=== PATIENT | female | born 1995 | race Caucasian/White ===

== ENCOUNTER 2020-01-29 20:38 | Emergency (ER) | payer OTHER, SELFPAY ==
[2020-01-29 20:46] VITALS: BP 121/73; PULSE 70; RESP 14; TEMP 36.7; O2SAT 100; BMI 23.9
--- NOTE | 2020-01-29 21:01 | ED.NEUROSD ---
HPI - Neuro Symptoms/Deficit General Chief Complaint: Neuro Symptoms/Deficit Stated Complaint: left side body numbeness,headache,vision changes Time Seen by Provider: 01/29/20 20:42 Source: patient Mode of arrival: Ambulatory Limitations: no limitations History of Present Illness HPI Narrative: 24F nonsmoker without chronic medical problems presents with a friend and the chief complaint of her migraine type pain. She has a history of migraine type headaches which have presented under similar circumstances as today. She first develops some visual spots, then gets some numbness on the left side of her body. Her pain is traditionally gradual in onset and on the right side of her head. She has a migraine medicine which she took at home and symptoms are now largely gone. She denies any injury, fever, or neck pain. She denies any ongoing neurologic symptoms other than a minor amount of tingling on the left side of her body. She denies chest pain or shortness of breath. She is otherwise well and free of complaint Onset (ago): hour(s) Severity: mild Quality: tingling Relieving factors: none Exacerbating factors: none On Anticoagulants: No Associated symptoms: headaches Treatments Prior to Arrival: other medication Related Data Allergies Allergy/AdvReac Type Severity Reaction Status Date / Time No Known Drug Allergies Allergy Verified 01/29/20 20:46 Review of Systems Constitutional Constitutional: Denies chills, Denies fatigue, Denies fever(s), Denies frequent falls, Reports headache(s), Denies lethargy and Denies weakness Eyes Eyes: Denies change in vision, Denies eye discharge, Reports floaters, Denies irritation and Denies loss of vision ENT Ears, Nose, Mouth, and Throat: Denies change in voice, Denies dizziness, Reports headache(s), Denies neck pain, Denies sore throat and Denies throat swelling Cardiovascular Cardiovascular: Denies chest pain, Denies irregular heart rhythm, Denies lightheadedness, Denies palpitations, Denies dyspnea, Denies dyspnea on exertion and Denies orthopnea Respiratory Respiratory: Denies cough, Denies dyspnea, Denies dyspnea on exertion and Denies wheezing Gastrointestinal Gastrointestinal: Denies abdominal pain, Denies change in bowel habits, Denies diarrhea, Denies nausea and Denies vomiting Musculoskeletal Musculoskeletal: Denies neck pain and Reports numbness Integumentary/Breasts Skin/Breast: Denies pruritus, Denies erythema, Denies rash and Denies wounds Neurologic Neurologic: Denies behavioral changes, Denies confusion, Denies dizziness, Denies frequent falls, Reports headache(s), Denies loss of vision, Reports numbness and Denies weakness Psychiatric Psychiatric: Denies anxiety, Denies behavioral changes, Denies confusion, Denies depression, Denies homicidal ideation and Denies suicidal ideation Endocrine Endocrine: Denies fatigue, Denies flushing and Denies palpitations Hematologic/Lymphatic Hematologic/Lymphatic: Denies easy bruising Allergic/Immunologic Allergic/Immunologic: Denies urticaria, Denies throat swelling and Denies wheezing Patient History Social History Smoking Status: Unknown if ever smoked Smoking Status: Unknown if ever smoked alcohol intake frequency: holidays/special occasions only Substance Use Type: does not use Exam Narrative Exam Narrative: GENERAL: [24] year old patient appears stated age. Well-nourished, well-developed patient, in mild distress. HEAD: Atraumatic. Normocephalic. EYES: Pupils equal round and reactive. Extraocular motions intact. No scleral icterus. No injection or drainage. ENT: Nose without bleeding, purulent drainage. Throat without erythema, tonsillar hypertrophy or exudate. Airway patent. NECK: Trachea midline. Non tender CARDIOVASCULAR: Regular rate and rhythm without murmurs, gallops, or rubs. RESPIRATORY: Clear to auscultation. Breath sounds equal bilaterally. No wheezes, rales, or rhonchi. GASTROINTESTINAL: Abdomen soft, non-tender, nondistended. EXTREMITIES: No edema or joint tenderness. BACK: Nontender without deformity or crepitance. No flank tenderness. NEURO: AOx3. SKIN: No rash or erythema of visible areas NIH Stroke Scale 1a. LOC: Patient is alert and keenly responsive (0) 1b. LOC Questions: Patient answers both LOC questions accurately (0) 1c. LOC Commands: Patient performs both tasks correctly (0) 2. Best Gaze: Normal (0) 3. Visual: No visual loss (0) 4. Facial palsy: Normal symmetrical movements (0) 5. Motor arm: No drift (0) 6. Motor leg: No drift (0) 7. Limb ataxia: Absent (0) 8. Sensory: Normal (0) 9. Best language: No aphasia; normal (0) 10. Dysarthria: Normal (0) 11. Extinction and inattention: No abnormality (0) NIHSS: 0 Initial Vital Signs Initial Vital Signs: Vital Signs Temperature 98.0 F 01/29/20 20:46 Pulse Rate 70 01/29/20 20:46 Respiratory Rate 14 01/29/20 20:46 Blood Pressure 121/73 01/29/20 20:46 Pulse Oximetry 100 01/29/20 20:46 Course Orders Ordered: ED Orders 01/29/20 21:14 CT head/brain wo con Stat Discontinued Medications Sodium Chloride (Normal Saline 0.9%) 1,000 mls @ 1,000 mls/hr IV BOLUS ONE Stop: 01/29/20 22:13 Last Admin: 01/29/20 21:43 Dose: Not Given Documented by: MARIETTA Vital Signs Vital signs: Vital Signs - 8 hr 01/29/20 21:49 Pulse Rate 84 Respiratory Rate 14 Blood Pressure 117/71 Pulse Oximetry 100 MDM - Neuro Symptoms/Deficit Lab Data Labs: Point of Care Testing Test Results Negative Glucose POC 129 Urine Dip Bedside Urine Glucose Negative Bedside Urine Bilirubin - Negative Bedside Urine Ketone - Negative Urine Specific [place] 1.015 Bedside Urine Occult Blood - Negative Bedside Urine pH 6 Bedside Urine Protein - Negative Bedside Urine Urobilinogen - Negative Bedside Urine Nitrite - Negative Bedside Urine Leukocytes - Negative Esterase Imaging Data CT scan - head: Radiologist's Impression: [place] [id number] CT Scan Report Signed Patient: Pau Aguilar TMR#: [id number] : 1995Acct:[id number] Age/Sex: 24 / FDate of Service: 01/29/20 Loc: ED Accession Number: [id number] Procedure: CT head/brain wo con Ordering Provider: Vladimir Christensen D.O. PROCEDURE: CT HEAD/BRAIN WO CON INDICATIONS: headache, neuro change TECHNIQUE: Noncontrast 4.5 mm thick angled axial sections acquired from the foramen magnum to the vertex, with coronal and sagittal reformats. For radiation dose reduction, the following was used: automated exposure control, adjustment of mA and/or kV according to patient size. COMPARISON: None. FINDINGS: Image quality: Excellent. CSF spaces: Basal cisterns are patent. No extra-axial fluid collections. Ventricles are normal in size and shape. Brain: No midline shift. No intracranial masses or hemorrhage. Reid-white matter interface is normal. Skull and face: Calvarium and visualized facial bones are intact, without suspicious lesions. Sinuses: Visualized sinuses and mastoids are clear. IMPRESSION: No CT evidence of acute intracranial pathology. Dictated by: Jonathon Brennan M.D. on 01/29/2020 at 21:35 Approved by: Jonathon Brnenan M.D. on 01/29/2020 at 21:36 [facility] Narrative Medical decision making narrative: Patient symptoms resolved soon after arrival. Head CT reassuring. We discussed lack of findings in history or exam to suggest neurologic or neurosurgical emergency. We discussed giving typical migraine medications but she refused stating she was no longer having discomfort. She was given return precautions and had questions answered to her apparent satisfaction. Discharge Plan Departure Patient Disposition: Home Clinical Impression: Headache Qualifiers: Headache type: unspecified Headache chronicity pattern: acute headache Intractability: not intractable Qualified Code(s): R51 - Headache Discharge Date/Time: 01/29/20 21:51 Instructions: DI for Migraine Activity Restrictions/Additional Instructions: *You have been diagnosed with [acute resolved headache, likely migraine] *What to do: *Take medications as directed *Follow up with your primary care provider in 2-3 days, call for an appointment. Let them know you were seen in the Emergency Department and that we ask that you be seen in follow up *Return to ER if you should have any new, worsening or concerning symptoms
--- NOTE | 2020-01-29 21:10 | PC.NURSE ---
Patient presents to the ED with complaints of left side eye disturbance and left sided tingling. She has no visual field loss, no focal weakness in her arms or legs, her pupils are PERRLA, she was has no horizontal gaze palsy, no sensation loss of difference in either side of her body. She does report having an increase in anxiety for the last two weeks which she is not taking anything for. 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 She took her Rizatripton for migraine today and it seemed to have little effect in alleviating her headache pain.
--- NOTE | 2020-01-29 21:14 | DI.CT.S_ITS ---
PROCEDURE: CT HEAD/BRAIN WO CON INDICATIONS: headache, neuro change TECHNIQUE: Noncontrast 4.5 mm thick angled axial sections acquired from the foramen magnum to the vertex, with coronal and sagittal reformats. For radiation dose reduction, the following was used: automated exposure control, adjustment of mA and/or kV according to patient size. COMPARISON: None. FINDINGS: Image quality: Excellent. CSF spaces: Basal cisterns are patent. No extra-axial fluid collections. Ventricles are normal in size and shape. Brain: No midline shift. No intracranial masses or hemorrhage. Reid-white matter interface is normal. Skull and face: Calvarium and visualized facial bones are intact, without suspicious lesions. Sinuses: Visualized sinuses and mastoids are clear. IMPRESSION: No CT evidence of acute intracranial pathology. Dictated by: Jonathon Brennan M.D. on 01/29/2020 at 21:35 Approved by: Jonathon Brennan M.D. on 01/29/2020 at 21:36
[2020-01-29 21:49] VITALS: BP 117/71; PULSE 84; RESP 14; O2SAT 100
== END 2020-01-29 21:51 | disposition home or self-care (01) ==
PROVIDERS: Emergency Provider Emergency Medicine
DX: R51 Headache (principal); R29.818 Other symptoms and signs involving the nervous system
CPT/HCPCS: 70450; 81003; 81025; 82962; 99283; 99284

== ENCOUNTER 2020-05-16 08:46 | Emergency (ER) | payer OTHER, SELFPAY ==
[2020-05-16 08:52] VITALS: BP 136/81; PULSE 85; O2SAT 98
--- NOTE | 2020-05-16 08:56 | ED_ITS ---
HPI - General Adult General Chief complaint: Headache Stated complaint: Chronic Headaches,Almost passes when she stands up Time Seen by Provider: 05/16/20 08:54 Source: patient Mode of arrival: Ambulatory Limitations: no limitations History of Present Illness HPI narrative: Patient is a 25-year-old female who has suffered from chronic headaches for the past several months. She is on an abortive medication prescri bed by her primary doctor. She states she gets several headaches a month. She is here for a headache that she states has been going on for the past 3 days. She has been using her prescribed medicines as well as Tylenol and ibuprofen without any improvement. She states that she also is getting lightheaded when she stands up. No fevers. No neck pain. No trauma. She did have an implanted control method placed in her arm approximately 1 month ago when she states that her headache started to get worse prior to this. She does not feel that there associated with any menstrual cycle. She has not seen a headache specialist. This is her 3rd visit to an emergency department for these headaches in the past 6 months and the 2nd visit to this department. She has had a head CT in the past that was unremarkable. She is here because she states that this headache has lasted longer than prior headaches and she is getting lightheaded when she stands up. Related Data Allergies Allergy/AdvReac Type Severity Reaction Status Date / Time No Known Drug Allergies Allergy Verified 05/16/20 10:23 Review of Systems Constitutional Constitutional: Denies chills, Denies fever(s), Reports headache(s), Denies malaise and Denies weakness Eyes Comments: Eyes hurt secondary to headache ENT Ears, Nose, Mouth, and Throat: Denies vertigo, Reports dizziness, Reports headache(s), Denies neck pain and Denies sore throat Cardiovascular Cardiovascular: Denies chest pain, Denies syncope and Denies dyspnea Respiratory Respiratory: Denies dyspnea Gastrointestinal Gastrointestinal: Denies abdominal pain Genitourinary Genitourinary: Denies dysuria Genitourinary: Denies dysuria Musculoskeletal Musculoskeletal: Denies arthralgias, Denies back pain, Denies myalgias and Chandler es neck pain Integumentary/Breasts Skin/Breast: Denies lesions and Denies rash Neurologic Neurologic: Denies abnormal speech, Denies behavioral changes, Denies vertigo, Reports dizziness, Denies syncope, Reports headache(s) and Denies weakness Psychiatric Psychiatric: Denies behavioral changes Hematologic/Lymphatic Hematologic/Lymphatic: Denies easy bleeding and Denies easy bruising Allergic/Immunologic Allergic/Immunologic: Denies urticaria Patient History Medical History Migraine (Acute) Social History Smoking Status: Current some day smoker Smoking Status: Unknown if ever smoked alcohol intake frequency: holidays/special occasions only Substance Use Type: does not use Exam Initial Vital Signs Initial Vital Signs: Vital Signs Pulse Rate 85 05/16/20 08:52 Blood Pressure 136/81 05/16/20 08:52 Pulse Oximetry 98 05/16/20 08:52 Const General: cooperative, healthy appearing, comfortable, well developed and well groomed Limitations: mental status not altered HENMT Head: normal to inspection and normocephalic Nose: external nose normal Face and sinus: normal facial exam Mouth: oral mucosae normal Eyes Pupils: PERRL Neck Neck: no meningeal signs Resp Effort & Inspection: normal respiratory effort Auscultation: clear to auscultation bilaterally Cardio Rate: regular rate Rhythm: regular rhythm Skin Lesions: no lesions Rashes: no rashes Neuro General: patient alert, patient awake and patient oriented x3 Cognition: normal cognition Speech: speech normal Extrem General: normal to inspection and capillary refill normal Psych Appearance: grossly normal and well kempt Scores GCS [place] coma scale eye opening: Spontaneous [place] coma scale verbal response: Orientated Mary coma scale motor response: Obey commands Mary coma scale total score: 15 NIH Stroke Scale Level of Conciousness: Alert, keenly responsive Ask month/age: Answers both questions correctly. Open/close eyes, close hand: Performs both tasks correctly Best gaze horizontal: Normal Visual fry: No visual loss Facial palsy: Normal symetrical movement Left arm drift: No drift for full 10 sec Right arm drift: No drift for full 10 sec Left leg drift: No drift for full 5 sec Right leg drift: No drift for full 5 sec Limb ataxia: Absent Sensory on face/arms/legs: Normal, no sensory loss Best language: No aphasia, normal Dysarthria: Normal Extinction or inattention: No abnormality Total NIH Stroke scale score: 0 Course Orders Ordered: Discontinued Medications Diphenhydramine HCl (Benadryl) 25 mg IV NOW ONE Stop: 05/16/20 09:07 Last Admin: 05/16/20 09:33 Dose: 25 mg Documented by: BABITA Sodium Chloride (Normal Saline 0.9%) 1,000 mls @ 1,000 mls/hr IV BOLUS ONE Stop: 05/16/20 10:05 Last Admin: 05/16/20 09:33 Dose: 1,000 mls/hr Documented by: BABITA Ketorolac Tromethamine (Toradol) 30 mg IV NOW ONE Stop: 05/16/20 09:07 Last Admin: 05/16/20 09:33 Dose: 30 mg Documented by: BABITA Metoclopramide HCl (Reglan) 10 mg IV NOW ONE Stop: 05/16/20 09:07 Last Admin: 05/16/20 09:33 Dose: 10 mg Documented by: BABITA Vital Signs Vital signs: Vital Signs - 8 hr 05/16/20 08:52 05/16/20 09:42 05/16/20 10:00 Temperature Pulse Rate 85 81 66 Respiratory Rate Blood Pressure 136/81 118/69 101/59 L Pulse Oximetry 98 100 100 05/16/20 10:19 Temperature 98.4 F Pulse Rate 89 Respiratory Rate 14 Blood Pressure 136/78 Pulse Oximetry 99 Medical Decision Making Lab Data Lab results reviewed: Yes I reviewed the patient's lab results. Labs: Point of Care Testing Test Results Negative Urine Dip Bedside Urine Glucose Negative Bedside Urine Bilirubin - Negative Bedside Urine Ketone - Negative Urine Specific [place] 1.015 Bedside Urine Occult Blood +/- Bedside Urine pH 7.0 Bedside Urine Protein - Negative Bedside Urine Urobilinogen - Negative Bedside Urine Nitrite - Negative Bedside Urine Leukocytes - Negative Esterase Point of care testing: Point of Care Testing Test Results Negative Urine Dip Bedside Urine Glucose Negative Bedside Urine Bilirubin - Negative Bedside Urine Ketone - Negative Urine Specific [place] 1.015 Bedside Urine Occult Blood +/- Bedside Urine pH 7.0 Bedside Urine Protein - Negative Bedside Urine Urobilinogen - Negative Bedside Urine Nitrite - Negative Bedside Urine Leukocytes - Negative Esterase MDM Narrative Medical decision making narrative: Patient has a normal neurologic exam. She has had headaches like this in the past. I have low suspicion for CVA or TIA or intracranial hemorrhage given her physical exam. Had a long discussion with her regarding her headaches and informed her that she needs to talk with her medical department [facility] [employer] to discuss potential preventative headache medicines given the fact that she has had these multiple times over the past several months and has missed work and now has had a 3rd emergency department visit because of that. I feel we can hold on radiologic studies for now. After the medications patient reported complete resolution of all of her symptoms she was given return precautions. She expressed understanding and agreement. Discharge Plan Departure Patient Disposition: Home Clinical Impression: Headache Instructions: DI for Headache Activity Restrictions/Additional Instructions: I do recommend that you contact your medical department to discuss potential referrals to see Neurology and medications. Return to the emergency department for any new symptoms Stand Alone Forms: Work Release Note
[2020-05-16] MEDS: SODIUM CHLORIDE 0.9% 1,000 ML 1000 ML IV (09:33)
[2020-05-16] MEDS: diphenhydrAMINE 50 MG/ML VIAL 25 MG IV (09:33)
[2020-05-16] MEDS: KETOROLAC 60 MG/2 ML VIAL 30 MG IV (09:33)
[2020-05-16] MEDS: METOCLOPRAMIDE 10 MG/2 ML INJ IV (09:33)
[2020-05-16 09:42] VITALS: BP 118/69; PULSE 81; O2SAT 100
[2020-05-16 10:00] VITALS: BP 101/59; PULSE 66; O2SAT 100
[2020-05-16 10:19] VITALS: BP 136/78; PULSE 89; RESP 14; TEMP 36.9; O2SAT 99; BMI 23.9
--- NOTE | 2020-06-06 15:26 | PC.NURSE ---
Late entry: IV NS infused 1035 hours.
== END 2020-05-16 10:36 | disposition home or self-care (01) ==
PROVIDERS: Emergency Provider Emergency Medicine
DX: R51.9 Headache, unspecified (principal)
CPT/HCPCS: 81003; 81025; 96361; 96374; 96375; 99283; 99284; J1200; J1885; J2765

== ENCOUNTER 2020-09-20 00:33 | Emergency (ER) | payer OTHER, SELFPAY ==
[2020-09-20 00:35] VITALS: BP 122/78; PULSE 107; RESP 18; TEMP 36.6; O2SAT 100; BMI 23.0
--- NOTE | 2020-09-20 00:39 | ED_ITS ---
HPI - Nausea/Vomiting/Diarrhea General Chief complaint: GI Bleed Stated complaint: diarrhea nausea dizziness shakey Time Seen by Provider: 09/20/20 00:37 Source: patient and family Mode of arrival: Ambulatory Limitations: no limitations History of Present Illness HPI Narrative: 25-year-old female nonsmoker with history of chronic headaches presents with her significant other and a chief complaint of multiple episodes of loose stool over the course of the day that have become dark. She feels a bit dizzy and shaky but is otherwise well and free of complaint. She denies any pain. She denies any vomiting but is nauseated. She denies any history of gastrointestinal bleed, ulcers, frequent use of NSAIDs or history of endoscopy. She has had no recent antibiotics, exposure to other ill persons, international travel, bad food or history of the same. She states initially her diarrhea was yellowish. MD complaint: nausea and diarrhea Onset (ago): hour(s) Associated Abdominal Pain: No Severity: mild Relieving factors: none Exacerbating factors: none Associated symptoms: denies other symptoms Related Data Allergies Allergy/AdvReac Type Severity Reaction Status Date / Time No Known Drug Allergies Allergy Verified 05/16/20 10:23 Review of Systems Constitutional Constitutional: Denies chills, Denies fatigue, Denies fever(s), Denies frequent falls, Denies lethargy and Reports weakness Eyes Eyes: Denies change in vision, Denies eye discharge, Denies irritation and Denies loss of vision ENT Ears, Nose, Mouth, and Throat: Denies change in voice, Denies dizziness, Denies neck pain, Denies sore throat and Denies throat swelling Cardiovascular Cardiovascular: Denies chest pain, Denies irregular heart rhythm, Denies lightheadedness, Denies palpitations, Denies dyspnea, Denies dyspnea on exertion and Denies orthopnea Respiratory Respiratory: Denies cough, Denies dyspnea, Denies dyspnea on exertion and Denies wheezing Gastrointestinal Gastrointestinal: Denies abdominal pain, Denies change in bowel habits, Reports diarrhea, Reports nausea and Denies vomiting Musculoskeletal Musculoskeletal: Denies neck pain and Denies numbness Integumentary/Breasts Skin/Breast: Denies pruritus, Denies erythema, Denies rash and Denies wounds Neurologic Neurologic: Denies behavioral changes, Denies confusion, Denies dizziness, Denies frequent falls, Denies loss of vision, Denies numbness and Reports weakness Psychiatric Psychiatric: Denies anxiety, Denies behavioral changes, Denies confusion, Denies depression, Denies homicidal ideation and Denies suicidal ideation Endocrine Endocrine: Denies fatigue, Denies flushing and Denies palpitations Hematologic/Lymphatic Hematologic/Lymphatic: Denies easy bruising Allergic/Immunologic Allergic/Immunologic: Denies urticaria, Denies throat swelling and Denies wheezing Patient History Medical History (Updated 09/20/20 @ 02:19 by Vladimir Christensen DO) Migraine Social History Smoking Status: Current some day smoker Smoking Status: Current some day smoker tobacco type: vaping alcohol intake frequency: holidays/special occasions only Substance Use Type: does not use Exam Narrative Exam Narrative: GENERAL: [25] year old patient appears stated age. Well- nourished, well-developed patient, in mild distress. HEAD: Atraumatic. Normocephalic. EYES: Pupils equal round and reactive. Extraocular motions intact. No scleral icterus. No injection or drainage. ENT: Nose without bleeding, purulent drainage. Throat without erythema, tonsillar hypertrophy or exudate. Airway patent. NECK: Trachea midline. Non tender CARDIOVASCULAR: Regular rate and rhythm without murmurs, gallops, or rubs. RESPIRATORY: Clear to auscultation. Breath sounds equal bilaterally. No wheezes, rales, or rhonchi. GASTROINTESTINAL: Abdomen soft, non-tender, nondistended. RECTAL: no pain or bleeding. Heme NEGATIVE EXTREMITIES: No edema or joint tenderness. BACK: Nontender without deformity or crepitance. No flank tenderness. NEURO: AOx3. SKIN: No rash or erythema of visible areas Initial Vital Signs Initial Vital Signs: Vital Signs Temperature 97.9 F 09/20/20 00:35 Pulse Rate 107 H 09/20/20 00:35 Respiratory Rate 18 09/20/20 00:35 Blood Pressure 122/78 09/20/20 00:35 Pulse Oximetry 100 09/20/20 00:35 Course Orders Ordered: ED Orders 09/20/20 00:55 Complete Blood Count AUTO DIFF Stat Comprehensive Metabolic Panel Stat 09/20/20 02:05 Urinalysis and Microscopic Stat Discontinued Medications Sodium Chloride (Normal Saline 0.9%) 1,000 mls @ 1,000 mls/hr IV BOLUS ONE Stop: 09/20/20 01:49 Last Admin: 09/20/20 00:58 Dose: 1,000 mls/hr Documented by: KOBI Ondansetron HCl (Ondansetron 4 Mg/2 Ml Inj) 4 mg IV NOW ONE Stop: 09/20/20 01:03 Last Admin: 09/20/20 01:04 Dose: 4 mg Documented by: KOBI Pantoprazole Sodium (Pantoprazole 40 Mg Vial) 40 mg IV NOW ONE Stop: 09/20/20 00:51 Last Admin: 09/20/20 00:58 Dose: 40 mg Documented by: KOBI Reevaluation(s) Reevaluation #1: Patient feeling much better after above-stated therapies. Still no bowel movement since she has been here. She is ambulating through the department without any trouble. Time: 01:38 Vital Signs Vital signs: Vital Signs - 8 hr 09/20/20 00:35 Temperature 97.9 F Pulse Rate 107 H Respiratory Rate 18 Blood Pressure 122/78 Pulse Oximetry 100 MDM - Nausea/Vomiting/Diarrhea Lab Data Result diagrams: 09/20/20 00:55 09/20/20 00:55 Labs: Lab Results 09/20/20 09/20/20 Range/Units 00:55 00:55 WBC 12.7 H (4.5-11.0) X10^3/uL RBC 4.82 (4.0-5.2) X10^6/uL Hgb 13.6 (12.0-16.0) g/dL Hct 40.4 (36-46) % MCV 83.9 (80-100) fL MCH 28.2 (26-34) PG MCHC 33.6 (30-36) % RDW 12.7 (11.6-14.8) % Plt Count 233 (150-400) X10^3/uL Neut % (Auto) 74.9 (50-75) % Lymph % (Auto) 19.0 L (25-40) % [place] % (Auto) 5.7 (3-14) % Eos % (Auto) 0.1 L (2-4) % Baso % (Auto) 0.3 (0-2) % Neut # (Auto) 9500 H (6043-9745) /uL Lymph # (Auto) 2400 (5769-4313) /uL [place] # (Auto) 700 (0-900) /uL Eos # (Auto) 0 (0-450) /uL Baso # (Auto) 0 (0-100) /uL Sodium 136 L (137-145) mmol/L Potassium 3.7 (3.4-5.1) mmol/L Chloride 104 (98-107) mmol/L Carbon Dioxide 27 (22-32) mmol/L BUN 15 (7-17) mg/dL Creatinine 0.78 (0.52-1.04) mg/dL Estimated GFR > 60.0 (>60) mL/min BUN/Creatinine Ratio 19.2 (6-22) Glucose 100 (70-100) mg/dL Calcium 9.7 (8.4-10.2) mg/dL Total Bilirubin 0.3 (0.2-1.3) mg/dL AST 25 (14-36) IU/L ALT 19 (<35) IU/L Alkaline Phosphatase 62 (38-126) U/L Total Protein 7.9 (6.3-8.2) g/dL Albumin 4.6 (3.5-5.0) g/dL Globulin 3.3 (1.7-4.1) g/dL Albumin/Globulin Ratio 1.4 (1.0-2.8) Urine Dip Bedside Urine Glucose Negative Bedside Urine Bilirubin - Negative Bedside Urine Ketone - Negative Urine Specific [place] 1.010 Bedside Urine Occult Blood - Negative Bedside Urine pH 6.5 Bedside Urine Protein - Negative Bedside Urine Urobilinogen - Negative Bedside Urine Nitrite - Negative Bedside Urine Leukocytes - Negative Esterase MDM Narrative Medical decision making narrative: Multiple etiologies for patient's symptoms considered including: [Infectious diarrhea versus dyspepsia versus bleeding ulcer versus other] Patient's symptoms improved over duration of stay with above-stated therapies. She is ambulating through the department, has had no diarrhea since she has been here, as very reassuring labs and vital signs Findings and discharge diagnosis discussed with patient/family followed by verbalization of understanding Return precautions discussed with patient/family whom verbalize understanding. Discharge Plan Departure Patient Disposition: Home Clinical Impression: Diarrhea Qualifiers: Diarrhea type: unspecified type Qualified Code(s): R19.7 - Diarrhea, unspecified Instructions: Diarrhea, DI for Dyspepsia Activity Restrictions/Additional Instructions: *You have been diagnosed with [diarrhea without evidence of bleeding, dyspepsia] *What to do: *Take medications as directed: As we discussed, please consider a 2 week trial of [id number] Nexium or Protonix (generic is fine and available at [facility] for cheap *Follow up with your primary care provider in 2-3 days, call for an appointment. Let them know you were seen in the Emergency Department and that we ask that you be seen in follow up. Your ongoing nausea with eating is worth talking about with them and could warrant further investigation with endoscopy. *Return to ER if you should have any new, worsening or concerning symptoms, worsening pain, ongoing bright red or dark and tarry stools, fever greater than 101 F or other bothersome symptoms
[2020-09-20] MEDS: PANTOPRAZOLE 40 MG VIAL IV (00:58)
[2020-09-20] MEDS: SODIUM CHLORIDE 0.9% 1,000 ML 1000 ML IV (00:58)
[2020-09-20] MEDS: ONDANSETRON 4 MG/2 ML INJ IV (01:04)
[2020-09-20 01:09] LABS: Add Manual Diff / Slide Review NO; Basophils Absolute Auto 0 /uL (0-100); Basophils Percent Auto 0.3 % (0-2); Eosinophils Absolute Auto 0 /uL (0-450); Eosinophils Percent Auto 0.1 % (2-4); Hematocrit 40.4 % (36-46); Hemoglobin 13.6 g/dL (12.0-16.0); Lymphocytes Absolute Auto 2400 /uL (1100-4500); Mean Corpuscular HGB Conc 33.6 % (30-36); Mean Corpuscular Hemoglobin 28.2 PG (26-34); Mean Corpuscular Volume 83.9 fL (80-100); Monocytes Absolute Auto 700 /uL (0-900); Monocytes Percent Auto 5.7 % (3-14); Neutrophils Absolute Auto 9500 /uL (1500-7000); Neutrophils Percent Auto 74.9 % (50-75); Platelet Count 233 X10^3/uL (150-400); Red Blood Cell Count 4.82 X10^6/uL (4.0-5.2); Red Cell Distribution Width 12.7 % (11.6-14.8); White Blood Cell Count 12.7 X10^3/uL (4.5-11.0)
[2020-09-20 01:15] LABS: Alanine Aminotransferase 19 IU/L (<35); Albumin 4.6 g/dL (3.5-5.0); Albumin Globulin Ratio 1.4 (1.0-2.8); Alkaline Phosphatase 62 U/L (38-126); Aspartate Aminotransferase 25 IU/L (14-36); BUN Creatinine Ratio 19.2 (6-22); Bilirubin Total 0.3 mg/dL (0.2-1.3); Blood Urea Nitrogen 15 mg/dL (7-17); Calcium 9.7 mg/dL (8.4-10.2); Carbon Dioxide 27 mmol/L (22-32); Chloride 104 mmol/L (98-107); Estimated Glomerular Filt Rate > 60.0 mL/min (>60); Globulin 3.3 g/dL (1.7-4.1); Glucose 100 mg/dL (70-100); HEMOLYSIS < 15 (0-50); Potassium 3.7 mmol/L (3.4-5.1); Sodium 136 mmol/L (137-145); Total Protein 7.9 g/dL (6.3-8.2)
--- NOTE | 2020-09-20 01:38 | PC.NURSE ---
Pt up ambulating in hallways to promote bm.
[2020-09-20 02:21] LABS: Appearance Urine UA CLOUDY; Bilirubin Urine UA NEGATIVE (NEGATIVE); Color Urine UA YELLOW; Glucose Urine UA NEGATIVE (Negative); Ketones Urine UA NEGATIVE (NEGATIVE); Leukocyte Esterase Urine UA 1+ (NEGATIVE); Nitrite Urine UA NEGATIVE (Negative); Occult Blood Urine UA 3+ (Negative); Protein Urine UA 2+ (Negative); Urobilinogen Urine UA 0.2 E.U./dL (0.2)
[2020-09-20 02:28] VITALS: BP 104/66; PULSE 88; RESP 18; TEMP 36.6; O2SAT 100
[2020-09-20 02:29] LABS: Bacteria Urine Moderate (10-30); Culture Indicated Urine Specimen Cultured; RBC Urine 10-30/HPF (0-5/HPF); WBC Urine 5-10/HPF (0-5/HPF)
== END 2020-09-20 02:30 | disposition home or self-care (01) ==
PROVIDERS: Emergency Provider Emergency Medicine
DX: R19.7 Diarrhea, unspecified (principal); R11.0 Nausea
CPT/HCPCS: 36415; 80053; 81001; 81003; 85025; 87086; 96361; 96374; 96375; 99284; C9113; J2405

== ENCOUNTER 2020-10-20 20:30 | Emergency (ER) | payer OTHER, SELFPAY ==
[2020-10-20 20:34] VITALS: BP 125/60; PULSE 88; RESP 18; TEMP 36.6; O2SAT 100
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
[2020-10-21 00:54] VITALS: BP 129/71; PULSE 76; RESP 18; O2SAT 99
== END 2020-10-21 00:55 | disposition home or self-care (01) ==
PROVIDERS: Emergency Provider Emergency Medicine
DX: S66.911A Strain of unspecified muscle, fascia and tendon at wrist and hand level, right hand, initial encounter (principal); Q13.2 Other congenital malformations of iris; V89.2XXA Person injured in unspecified motor-vehicle accident, traffic, initial encounter
CPT/HCPCS: 99281

== ENCOUNTER 2021-01-03 18:34 | Emergency (ER) | payer OTHER, SELFPAY ==
[2021-01-03 18:48] VITALS: BP 128/78; PULSE 92; RESP 18; TEMP 36.8; O2SAT 99; BMI 23.9
[2021-01-03 19:43] LABS: Add Manual Diff / Slide Review NO; Basophils Absolute Auto 0 /uL (0-100); Basophils Percent Auto 0.2 % (0-2); Eosinophils Absolute Auto 0 /uL (0-450); Hematocrit 39.3 % (36-46); Hemoglobin 13.3 g/dL (12.0-16.0); Lymphocytes Absolute Auto 2300 /uL (1100-4500); Lymphocytes Percent Auto 27.8 % (25-40); Mean Corpuscular HGB Conc 33.8 % (30-36); Mean Corpuscular Hemoglobin 28.1 PG (26-34); Monocytes Absolute Auto 700 /uL (0-900); Neutrophils Absolute Auto 5200 /uL (1500-7000); Platelet Count 249 X10^3/uL (150-400); Red Blood Cell Count 4.74 X10^6/uL (4.0-5.2); Red Cell Distribution Width 12.5 % (11.6-14.8); White Blood Cell Count 8.2 X10^3/uL (4.5-11.0)
[2021-01-03 19:56] LABS: Alanine Aminotransferase 18 IU/L (<35); Albumin 4.4 g/dL (3.5-5.0); Albumin Globulin Ratio 1.4 (1.0-2.8); Alkaline Phosphatase 52 U/L (38-126); Aspartate Aminotransferase 23 IU/L (14-36); BUN Creatinine Ratio 14.8 (6-22); Bilirubin Total 0.5 mg/dL (0.2-1.3); Blood Urea Nitrogen 13 mg/dL (7-17); Calcium 10.3 mg/dL (8.4-10.2); Carbon Dioxide 29 mmol/L (22-32); Chloride 103 mmol/L (98-107); Estimated Glomerular Filt Rate > 60.0 mL/min (>60); Globulin 3.2 g/dL (1.7-4.1); Glucose 103 mg/dL (70-100); HEMOLYSIS < 15 (0-50); Lipase 114 U/L (23-300); Potassium 3.5 mmol/L (3.4-5.1); Sodium 139 mmol/L (137-145); Total Protein 7.6 g/dL (6.3-8.2)
[2021-01-03 21:20] LABS: Pregnancy Test Serum,Qual Negative (Negative)
--- NOTE | 2021-01-03 21:32 | ED_ITS ---
HPI - Nausea/Vomiting/Diarrhea General Chief complaint: Nausea/Vomiting/Diarrhea Stated complaint: Nausea and Diarrhea for a week Time Seen by Provider: 01/03/21 21:10 Source: patient Mode of arrival: Ambulatory Limitations: no limitations History of Present Illness HPI Narrative: Patient is an otherwise healthy 25-year-old female here for evaluation of left upper quadrant abdominal discomfort that started 1 week ago. About the same time she started having nausea but no vomiting. The pain has since improved however the nausea has continued. She does have some diarrhea over this is not necessarily new for her. No vaginal bleeding. No urinary symptoms. Has been taking Tums at home for the nausea but this has not helped all that much. No prior abdominal sort Related Data Allergies Allergy/AdvReac Type Severity Reaction Status Date / Time No Known Drug Allergies Allergy Verified 01/03/21 18:46 Review of Systems Constitutional Constitutional: Denies fever(s) Cardiovascular Cardiovascular: Denies chest pain Respiratory Comments: No shortness of breath Gastrointestinal Comments: See HPI Genitourinary Genitourinary: Reports system reviewed and no additional complaints, except as documented Musculoskeletal Musculoskeletal: Reports system reviewed and no additional complaints, except as documented Integumentary/Breasts Comments: No rashes Neurologic Neurologic: Denies behavioral changes Psychiatric Psychiatric: Denies behavioral changes Hematologic/Lymphatic On Anticoagulants: No Allergic/Immunologic Allergic/Immunologic: Reports system reviewed and no additional complaints, except as documented Patient History Medical History Migraine Social History Smoking Status: Current some day smoker Smoking Status: Current some day smoker tobacco type: vaping alcohol intake frequency: holidays/special occasions only Substance Use Type: does not use Exam Initial Vital Signs Initial Vital Signs: Vital Signs Temperature 98.2 F 01/03/21 18:48 Pulse Rate 92 H 01/03/21 18:48 Respiratory Rate 18 01/03/21 18:48 Blood Pressure 128/78 01/03/21 18:48 Pulse Oximetry 99 01/03/21 18:48 Const General: cooperative and healthy appearing HENMT Head: normal to inspection Resp Effort & Inspection: normal respiratory effort Auscultation: clear to auscultation bilaterally Cardio Rate: regular rate Rhythm: regular rhythm GI Other: Patient has a soft nondistended abdomen with very little if any discomfort in her left upper quadrant on palpation. Back/Spine/Pelvis Back: No CVA tenderness Skin General: no rashes or lesions noted Neuro General: patient alert and patient awake Extrem General: normal to inspection Psych Appearance: grossly normal Course Orders Ordered: ED Orders 01/03/21 19:36 Complete Blood Count AUTO DIFF Stat Comprehensive Metabolic Panel Stat Lipase Stat Test Serum,Qual Stat Discontinued Medications Ondansetron HCl (Ondansetron 4 Mg Odt Prepack) 1 bottle MISC SEEINSTR ONE Stop: 01/03/21 22:16 Vital Signs Vital signs: Vital Signs - 8 hr 01/03/21 18:48 01/03/21 22:22 Temperature 98.2 F Pulse Rate 92 H 80 Respiratory Rate 18 16 Blood Pressure 128/78 114/68 Pulse Oximetry 99 100 MDM - Nausea/Vomiting/Diarrhea Lab Data Attestation: I reviewed the patient's lab results. Result diagrams: 01/03/21 19:36 01/03/21 19:36 Labs: Lab Results 01/03/21 01/03/21 01/03/21 Range/Units 19:36 19:36 19:36 WBC 8.2 (4.5-11.0) X10^3/uL RBC 4.74 (4.0-5.2) X10^6/uL Hgb 13.3 (12.0-16.0) g/dL Hct 39.3 (36-46) % MCV 83.0 (80-100) fL MCH 28.1 (26-34) PG MCHC 33.8 (30-36) % RDW 12.5 (11.6-14.8) % Plt Count 249 (150-400) X10^3/uL Neut % (Auto) 64.0 (50-75) % Lymph % (Auto) 27.8 (25-40) % [place] % (Auto) 8.0 (3-14) % Eos % (Auto) 0.0 L (2-4) % Baso % (Auto) 0.2 (0-2) % Neut # (Auto) 5200 (6446-7496) /uL Lymph # (Auto) 2300 (0309-7030) /uL [place] # (Auto) 700 (0-900) /uL Eos # (Auto) 0 (0-450) /uL Baso # (Auto) 0 (0-100) /uL Sodium 139 (137-145) mmol/L Potassium 3.5 (3.4-5.1) mmol/L Chloride 103 (98-107) mmol/L Carbon Dioxide 29 (22-32) mmol/L BUN 13 (7-17) mg/dL Creatinine 0.88 (0.52-1.04) mg/dL Estimated GFR > 60.0 (>60) mL/min BUN/Creatinine Ratio 14.8 (6-22) Glucose 103 H (70-100) mg/dL Calcium 10.3 H (8.4-10.2) mg/dL Total Bilirubin 0.5 (0.2-1.3) mg/dL AST 23 (14-36) IU/L ALT 18 (<35) IU/L Alkaline Phosphatase 52 (38-126) U/L Total Protein 7.6 (6.3-8.2) g/dL Albumin 4.4 (3.5-5.0) g/dL Globulin 3.2 (1.7-4.1) g/dL Albumin/Globulin Ratio 1.4 (1.0-2.8) Lipase 114 (23-300) U/L Serum , Qual Negative (Negative) Urine Dip Bedside Urine Glucose Negative Bedside Urine Bilirubin - Negative Bedside Urine Ketone - Negative Urine Specific [place] 1.030 Bedside Urine Occult Blood - Negative Bedside Urine pH 7.5 Bedside Urine Protein - Negative Bedside Urine Urobilinogen - Negative Bedside Urine Nitrite - Negative Bedside Urine Leukocytes - Negative Esterase MDM Narrative Medical decision making narrative: Labs are reassuring. LFTs and lipase unre markable. test negative. Urine is negative. Has a very benign exam. I feel we should hold on further workup. Low suspicion for intra-abdominal surgical issue given her presentation today. Will send home with nausea medication. She will also start on a H2 carine. However contact her primary provider for follow-up. She was given strict return precautions. She expressed understanding and agreement. Discharge Plan Departure Patient Disposition: Home Clinical Impression: Nausea Instructions: DI for Nausea -- Adult Activity Restrictions/Additional Instructions: Use the nausea medication as needed. I also recommend that you start on a medicine called famotidine/Pepcid. You can purchase this [id number]. Recommend you take it 1 time a day for the next 7-14 days. If your symptoms resolve then stop this medication. If your symptoms do not improve contact your primary provider for a follow-up. Referrals: Swapna Velazquez MD [Primary Care Provider] -
[2021-01-03 22:22] VITALS: BP 114/68; PULSE 80; RESP 16; O2SAT 100
== END 2021-01-03 22:46 | disposition home or self-care (01) ==
PROVIDERS: Emergency Provider Emergency Medicine; PCP Family Medicine
DX: R11.0 Nausea (principal); R10.12 Left upper quadrant pain
CPT/HCPCS: 36415; 80053; 81003; 83690; 84703; 85025; 99282; 99283

== ENCOUNTER 2021-02-11 06:25 | Emergency (ER) | payer OTHER, SELFPAY ==
[2021-02-11 06:25] VITALS: BP 133/66; PULSE 85; RESP 15; TEMP 36.8; O2SAT 99; BMI 23.0
--- NOTE | 2021-02-11 06:27 | DI.RAD.S_ITS ---
PROCEDURE: XR CHEST 1V INDICATIONS: cough TECHNIQUE: One view of the chest was acquired. COMPARISON: None. FINDINGS: Surgical changes and devices: None. Lungs and pleura: Lungs are clear. No pleural effusions or pneumothorax. Mediastinum: Mediastinal contours appear normal. Heart size is normal. Bones and chest wall: No suspicious bony lesions. Mild levoconvex scoliotic curvature is noted. Overlying soft tissues appear unremarkable. IMPRESSION: Portable chest within normal limits. Note: No significant discrepancy from the preliminary report. Dictated by: Jose Byrnes M.D. on 02/11/2021 at 7:03 Approved by: Jose Byrnes M.D. on 02/11/2021 at 7:05
--- NOTE | 2021-02-11 06:44 | ED.GENADULT ---
HPI - General Adult General Chief complaint: Upper Respiratory Symptoms Stated complaint: Cough with blood Time Seen by Provider: 02/11/21 06:26 Source: patient Mode of arrival: Ambulatory Limitations: no limitations History of Present Illness HPI narrative: Patient is an otherwise healthy 25-year-old female who is here for evaluation of approximately 1 month of a cough. She states that last week she was coughing so hard that she had some blood tinged sputum. She contacted the nurse advice line which told her that is most likely because of overall throat. Happened again this morning and she could not sleep last night because of the cough so she came into the emergency department for evaluation. No fevers. Has a nonproductive cough. Has no sinus congestion. Has taken Tessalon Perles and also has a albuterol inhaler. She has also completed a course of antibiotics. All of these been prescribed by an outside provider. She reports that the symptoms did get better somewhat with these medications but has not returned. Related Data Previous Rx's Medication Instructions Recorded prednisone 20 mg tablet 40 mg PO DAILY 3 Days #6 tab 02/11/21 Allergies Allergy/AdvReac Type Severity Reaction Status Date / Time No Known Drug Allergies Allergy Verified 02/11/21 06:30 Review of Systems Constitutional Comments: No fevers ENT Comments: No sinus congestion, does have a sore throat Respiratory Respiratory: Reports as per HPI and Denies wheezing Gastrointestinal Gastrointestinal: Reports system reviewed and no additional complaints, except as documented Integumentary/Breasts Skin/Breast: Reports system reviewed and no additional complaints, except as documented Neurologic Neurologic: Reports system reviewed and no additional complaints, except as documented Hematologic/Lymphatic On Anticoagulants: No Allergic/Immunologic Allergic/Immunologic: Denies urticaria and Denies wheezing Patient History Medical History (Updated 02/11/21 @ 06:51 by Oliver Malcolm DO) Migraine Social History Smoking Status: Current some day smoker Smoking Status: Current some day smoker tobacco type: vaping alcohol intake frequency: holidays/special occasions only Substance Use Type: does not use Exam Initial Vital Signs Initial Vital Signs: Vital Signs Temperature 98.2 F 02/11/21 06:25 Pulse Rate 85 02/11/21 06:25 Respiratory Rate 15 02/11/21 06:25 Blood Pressure 133/66 02/11/21 06:25 Pulse Oximetry 99 02/11/21 06:25 Const General: cooperative and healthy appearing [place] Head: normal to inspection and normocephalic Mouth: moist mucous membranes Throat: postnasal drainage Resp Effort & Inspection: normal respiratory effort Auscultation: clear to auscultation bilaterally Skin General: no rashes or lesions noted Neuro General: patient alert, patient awake, patient oriented x3 and moves all extremities Extrem General: normal to inspection and capillary refill normal Psych Appearance: grossly normal and well kempt Course Orders Ordered: ED Orders 02/11/21 06:27 XR chest 1V Stat Vital Signs Vital signs: Vital Signs - 8 hr 02/11/21 06:25 Temperature 98.2 F Pulse Rate 85 Respiratory Rate 15 Blood Pressure 133/66 Pulse Oximetry 99 Medical Decision Making Imaging Data Chest x-ray: Radiologist's Impression: No acute findings MDM Narrative Medical decision making narrative: Patient has been on antibiotics and she does not have pneumonia today based on her symptoms. She is afebrile. Is a clear lung exam. Does have oral pharynx findings consistent with sinus congestion. She has been on Tessalon and also an inhaler. Plan will be is to put her on 3 days worth of steroids to see if this does not improve her symptoms. She will contact her primary doctor for follow-up. Low suspicion for pulmonary embolism or upper GI bleed. Discharge Plan Departure Patient Disposition: Home Clinical Impression: Cough Instructions: Cough (Alternative Therapy), Cough Activity Restrictions/Additional Instructions: I recommend that you start taking the steroids as directed. Contact your primary doctor for follow-up. Return to the emergency department for any new or worsening symptoms Prescriptions: New prednisone 20 mg tablet 40 mg PO DAILY 3 Days Qty: 6 RF: 0 Referrals: Swapna Velazquez MD [Primary Care Provider] -
== END 2021-02-11 06:56 | disposition home or self-care (01) ==
PROVIDERS: Emergency Provider Emergency Medicine; PCP Family Medicine
DX: R05 Cough (principal)
CPT/HCPCS: 71045; 99283

== ENCOUNTER 2021-03-22 14:02 | Emergency (ER) | payer OTHER, SELFPAY ==
[2021-03-22] VITALS (8 sets, daily range): BP systolic 100–110; BP diastolic 57–65; PULSE 55–91; RESP 14; TEMP 36.7; O2SAT 95–100; BMI 23.7
--- NOTE | 2021-03-22 14:11 | DI.RAD.S_ITS ---
PROCEDURE: XR SHOULDER RT MIN 2V INDICATIONS: shoulder pain after doing push ups TECHNIQUE: 3 views of the shoulder were acquired. COMPARISON: [facility], CR, XR CHEST 1V, 02/11/2021, 6:30. FINDINGS: Bones: No fractures or dislocations. No suspicious bony lesions. Visualized ribs appear intact. Soft tissues: No suspicious soft tissue calcifications. Two masslike soft tissue density in the upper arm. IMPRESSION: 1. No acute osseous abnormalities. 2. Masslike soft tissue densities in the upper arm, which could be caused by artifact. Recommend correlation with physical exam. If clinical concern for mass persists, Ultrasound or MRI may be obtained. Dictated by: Alen Delacruz M.D. on 03/22/2021 at 14:36 Approved by: Alen Delacruz M.D. on 03/22/2021 at 14:39
[2021-03-22] MEDS: CYCLOBENZAPRINE 10 MG TABLET PO (14:56)
[2021-03-22] MEDS: LIDOCAINE PATCH 1 EACH ADH..PATCH TOP (15:00)
[2021-03-22] MEDS: KETOROLAC 30 MG/ML VIAL 15 MG IM (15:05)
--- NOTE | 2021-03-22 15:22 | ED.UPPEXIN ---
HPI - Extremity Injury (Upper) <OCTAVIANO Bee - Last Filed: 03/22/21 18:14> General Chief Complaint: Extremity Injury, Upper Stated Complaint: shoulder pain Time Seen by Provider: 03/22/21 14:07 Source: patient Mode of arrival: Ambulatory Limitations: no limitations History of Present Illness HPI narrative: The patient is a 26-year-old female nonsmoker who denies pertinent medical history presents with a chief complaint of sudden onset of right shoulder pain while doing pushups today. She states she was doing steady of 20, had sudden pain around her shoulder blade. She denies any previous injuries to this area. She took several aspirin and 2 tablets of ibuprofen a few hours prior to arrival. Related Data Previous Rx's Medication Instructions Recorded cyclobenzaprine 10 mg tablet 10 mg PO TID PRN #14 tab 03/22/21 hydrocodone 5 mg-acetaminophen 325 1 tab PO Q4-6H PRN #7 tab 03/22/21 mg tablet ketorolac 10 mg tablet 10 mg PO TID PRN 5 Days #14 tab 03/22/21 lidocaine 5 % topical patch 1 patch TOPICAL DAILY PRN #15 ea 03/22/21 Allergies Allergy/AdvReac Type Severity Reaction Status Date / Time No Known Drug Allergies Allergy Verified 03/22/21 14:09 Review of Systems <OCTAVIANO Bee - Last Filed: 03/22/21 18:14> Review of Systems Narrative: GENERAL: Denies chills, fatigue, malaise, fever, sweats. HEENT: Denies sinus pain, ear pain, sore throat, difficulty swallowing, dizziness. RESPIRATORY: Denies dyspnea, cough, wheezing, hemoptysis, sputum. CARDIOVASCULAR: Denies chest pain, palpitations, orthopnea, edema, GASTROINTESTINAL: Denies nausea, vomiting, abdominal pain, diarrhea, constipation, melena. : Denies dysuria, frequency, incontinence, hematuria, urinary retention. MUSCULOSKELETAL: See HPI SKIN: Denies rash, skin lesions, or other NEUROLOGIC: Denies weakness, headache, numbness, change in speech, confusion, seizures, incoordination. PSYCHIATRIC: No concerning psychosocial issues. 12 point review of systems is negative except for those stated above Patient History <OCTAVIANO Bee - Last Filed: 03/22/21 18:14> Medical History (Updated 03/22/21 @ 16:14 by OCTAVIANO Bee) Migraine Social History Smoking Status: Current some day smoker Smoking Status: Current some day smoker tobacco type: vaping alcohol intake frequency: holidays/special occasions only Substance Use Type: does not use Exam <OCTAVIANO Bee - Last Filed: 03/22/21 18:14> Narrative Exam Narrative: GENERAL: This is a well-nourished, well-developed patient, in no acute distress HEAD: Atraumatic. Normocephalic. No temporal or scalp tenderness. EYES: Pupils equal round and reactive. Extraocular motions intact. No scleral icterus. No injection or drainage. ENT: Nose without bleeding, purulent drainage or septal hematoma. Wearing a mask e. Airway patent. NECK: Trachea midline. No JVD or lymphadenopathy. Supple, nontender, no meningeal signs. CARDIOVASCULAR: Regular rate and rhythm RESPIRATORY: Clear to auscultation. Breath sounds equal bilaterally. No wheezes, rales, or rhonchi. EXTREMITIES: Pain to palpation medial to right scapula, full range of motion noted right arm, negative empty can test, positive right radial pulse. BACK: Nontender without deformity or crepitance. No flank tenderness. NEURO: AOx3. SKIN: No rash or erythema on visible skin Initial Vital Signs Initial Vital Signs: Vital Signs Temperature 98.0 F 03/22/21 14:02 Pulse Rate 91 H 03/22/21 14:02 Respiratory Rate 14 03/22/21 14:02 Blood Pressure 102/58 L 03/22/21 14:02 Pulse Oximetry 95 03/22/21 14:02 <Oliver Malcolm DO - Last Filed: 03/22/21 18:19> Initial Vital Signs Initial Vital Signs: Vital Signs Temperature 98.0 F 03/22/21 14:02 Pulse Rate 91 H 03/22/21 14:02 Respiratory Rate 14 03/22/21 14:02 Blood Pressure 102/58 L 03/22/21 14:02 Pulse Oximetry 95 03/22/21 14:02 Course <OCTAVIANO Bee - Last Filed: 03/22/21 18:14> Orders Ordered: ED Orders 03/22/21 14:11 XR shoulder RT min 2V Stat Discontinued Medications Hydrocodone Bitart/Acetaminophen (Hydrocodone/Acet 5/325 Tablet) 1 tab PO NOW ONE Stop: 03/22/21 15:56 Last Admin: 03/22/21 16:00 Dose: 1 tab Documented by: WON Cyclobenzaprine HCl (Cyclobenzaprine 10 Mg Tablet) 10 mg PO NOW ONE Stop: 03/22/21 14:39 Last Admin: 03/22/21 14:56 Dose: 10 mg Documented by: WON Ketorolac Tromethamine (Ketorolac 30 Mg/Ml Vial) 15 mg IM NOW ONE Stop: 03/22/21 14:39 Last Admin: 03/22/21 15:05 Dose: 15 mg Documented by: WON Lidocaine (Lidocaine Patch 1 Each Adh..Patch) 1 each TOP NOW ONE Stop: 03/22/21 14:39 Last Admin: 03/22/21 15:00 Dose: 1 each Documented by: WON Vital Signs Vital signs: Vital Signs - 8 hr 03/22/21 14:02 03/22/21 14:26 03/22/21 14:51 Temperature 98.0 F Pulse Rate 91 H 55 L Pulse Rate [Bilateral Radial] Respiratory Rate 14 Blood Pressure 102/58 L Pulse Oximetry 95 100 99 03/22/21 14:54 03/22/21 15:17 03/22/21 15:53 Temperature Pulse Rate 77 76 Pulse Rate [Bilateral Radial] 55 L Respiratory Rate Blood Pressure 100/57 L Pulse Oximetry 100 100 03/22/21 15:54 03/22/21 16:00 Temperature Pulse Rate 78 74 Pulse Rate [Bilateral Radial] Respiratory Rate Blood Pressure 110/65 104/59 L Pulse Oximetry 100 100 <Oliver Malcolm, DO - Last Filed: 03/22/21 18:19> Orders Ordered: ED Orders 03/22/21 14:11 XR shoulder RT min 2V Stat Discontinued Medications Hydrocodone Bitart/Acetaminophen (Hydrocodone/Acet 5/325 Tablet) 1 tab PO NOW ONE Stop: 03/22/21 15:56 Last Admin: 03/22/21 16:00 Dose: 1 tab Documented by: WON Cyclobenzaprine HCl (Cyclobenzaprine 10 Mg Tablet) 10 mg PO NOW ONE Stop: 03/22/21 14:39 Last Admin: 03/22/21 14:56 Dose: 10 mg Documented by: WON Ketorolac Tromethamine (Ketorolac 30 Mg/Ml Vial) 15 mg IM NOW ONE Stop: 03/22/21 14:39 Last Admin: 03/22/21 15:05 Dose: 15 mg Documented by: WON Lidocaine (Lidocaine Patch 1 Each Adh..Patch) 1 each TOP NOW ONE Stop: 03/22/21 14:39 Last Admin: 03/22/21 15:00 Dose: 1 each Documented by: WON Vital Signs Vital signs: Vital Signs - 8 hr 03/22/21 14:02 03/22/21 14:26 03/22/21 14:51 Temperature 98.0 F Pulse Rate 91 H 55 L Pulse Rate [Bilateral Radial] Respiratory Rate 14 Blood Pressure 102/58 L Pulse Oximetry 95 100 99 03/22/21 14:54 03/22/21 15:17 03/22/21 15:53 Temperature Pulse Rate 77 76 Pulse Rate [Bilateral Radial] 55 L Respiratory Rate Blood Pressure 100/57 L Pulse Oximetry 100 100 03/22/21 15:54 03/22/21 16:00 Temperature Pulse Rate 78 74 Pulse Rate [Bilateral Radial] Respiratory Rate Blood Pressure 110/65 104/59 L Pulse Oximetry 100 100 MDM - Extremity Injury (Upper) <OCTAVIANO Bee - Last Filed: 03/22/21 18:14> Imaging Data Extremity x-ray #1: Radiologist's Impression: [address] [place] [address] XRay Report Signed Patient: Anita Blevins MR#: [id number] : 03/23/1982 Acct:[id number] Age/Sex: 38 / F Date of Service: 03/22/21 Loc: ED Accession Number: [id number] ?? Procedure: XR knee RT 3V Ordering Provider: Angeline Garcia PROCEDURE:? XR KNEE RT 3V ? INDICATIONS:? knee pain and swelling ? TECHNIQUE:? 3 views of the knee were acquired.? ? COMPARISON:? None. ? FINDINGS:? ? Bones:? No fractures or dislocations.? No suspicious bony lesions.? ? Soft tissues:? Minimal joint effusion.? No suspicious soft tissue calcifications.? ? ? IMPRESSION:? No visualized acute fracture or dislocation. However, if clinical concern and/or pain persist, short interval imaging followup in 7-10 days is recommended, as occult injury cannot be definitively excluded. ? ? Dictated by: Rachelle Wilkins M.D. on 03/22/2021 at 16:05 ? ? Approved by: Rachelle Wilkins M.D. on 03/22/2021 at 16:07 ? MDM Narrative Medical decision making narrative: The patient is a 26-year-old female who presents with a chief complaint of right shoulder pain after doing pushups. X-rays negative for any acute findings. She was reassuring range of motion, is neurovascularly intact, x-ray noted a possible soft tissue density versus artifact in her left upper arm which I discussed with her encouraged primary care provider follow-up however I cannot palpate anything at this time. She does feel improved after the above-stated therapies, I did prescribe medications as well as give her work note. Discussed at length follow up with primary care provider as well as coming back to the ER for acute concerns. Patient has no questions or concerns upon discharge states understanding return precautions as well as follow-up care. Discharge Plan Departure Patient Disposition: Home Clinical Impression: Muscle spasm Pain in right shoulder Qualifiers: Chronicity: acute Qualified Code(s): M25.511 - Pain in right shoulder Instructions: DI for Shoulder Pain, DI for Muscle Spasm Activity Restrictions/Additional Instructions: As I discussed, your x-ray shows no acute fracture. This does not rule out a soft tissue injury such as a ligament or tendon injury. It is important that you follow up with primary care provider, especially if worsening or no improvement. There can be fractures that did not show up on initial x-ray. As discussed, please follow-up with primary care provider in the next few days. You may benefit from physical therapy and/or further evaluation. As discussed there was an irregularity in your x-ray that can be a soft tissue density in your upper arm, or artifact from the x-ray. Follow-up with primary care provider regarding this. I sent 4 prescriptions in to [facility]. This includes a narcotic for pain, cyclobenzaprine which is a muscle relaxer, lidocaine pain patches as well as ketorolac or Toradol. Please be aware that you cannot take Toradol with any other NSAIDs such as ibuprofen or leave. Please take this with food. Please be aware that the muscle relaxer can be sedating. I have given you a prescription of a narcotic for pain. Be aware that this can be constipating and sedating. I encouraged taking with a stool softener, pushing fluids and fiber. Do not take and drive, operate heavy machinery, etc. Do not combine it with any other sedating substances such as alcohol. The combination of narcotics and alcohol and/or other sedatives can be lethal. Please be aware that we do not provide refills of controlled substances in the emergency department. Please follow up with your primary care provider. Prescriptions: New cyclobenzaprine 10 mg tablet 10 mg PO TID PRN (Reason: muscle spasm) Qty: 14 RF: 0 hydrocodone-acetaminophen 5-325 mg tablet 1 tab PO Q4-6H PRN (Reason: pain) Qty: 7 RF: 0 ketorolac 10 mg tablet 10 mg PO TID PRN (Reason: pain) 5 Days Qty: 14 RF: 0 lidocaine 5 % adhesive patch,medicated 1 patch topical DAILY PRN (Reason: pain) Qty: 15 RF: 0 Referrals: Swapna Velazquez MD [Primary Care Provider] - Stand Alone Forms: Work Release Note <Oliver Malcolm, DO - Last Filed: 03/22/21 18:19> Cosign ED Attending Cosignature Attestation: Dr Malcolm Co-Sign Statement: I was available for consultation during this patient's emergency department visit. This chart is signed by myself for administrative purposes only. I did not have direct contact with this patient during this visit. They were seen independently by the APC.
[2021-03-22] MEDS: HYDROCODONE/ACET 5/325 TABLET 1 TAB PO (16:00)
== END 2021-03-22 16:19 | disposition home or self-care (01) ==
PROVIDERS: Emergency Provider Nurse Practitioner Family; PCP Family Medicine
DX: M25.511 Pain in right shoulder (principal); M62.838 Other muscle spasm
CPT/HCPCS: 73030; 96372; 99283; J1885

== ENCOUNTER 2021-04-19 09:51 | Emergency (ER) | payer OTHER, SELFPAY ==
[2021-04-19 10:28] VITALS: BP 118/74; PULSE 92; RESP 18; TEMP 36.8; O2SAT 99; BMI 25.9
--- NOTE | 2021-04-19 10:32 | DI.US.S_ITS ---
PROCEDURE: US ABDOMEN LIMITED INDICATIONS: RIGHT UPPER QUADRANT PAIN TECHNIQUE: Real-time scanning was performed of the abdominal and retroperitoneal organs, with image documentation. COMPARISON: None. FINDINGS: Liver: Liver is normal in size and homogeneous in echotexture. Gallbladder: There is no gallstone. No gallbladder wall thickening or pericholecystic fluid. No sonographic Jung sign. Biliary ducts: Intrahepatic bile ducts are non-dilated. Extrahepatic bile duct caliber measures 6.1 mm. Normal is 6-7 mm or less in diameter, or 10 mm or less post-cholecystectomy. Pancreas: Visualized portions of the pancreas are sonographically normal. Miscellaneous: No free abdominal fluid. IMPRESSION: Unremarkable ultrasound examination of right upper quadrant abdomen. Dictated by: Jonathon Brennan M.D. on 04/19/2021 at 11:08 Approved by: Jonathon Brennan M.D. on 04/19/2021 at 11:09
[2021-04-19 11:05] LABS: Add Manual Diff / Slide Review NO; Basophils Absolute Auto 0 /uL (0-100); Basophils Percent Auto 0.1 % (0-2); Eosinophils Absolute Auto 0 /uL (0-450); Hematocrit 36.5 % (36-46); Hemoglobin 12.4 g/dL (12.0-16.0); Lymphocytes Absolute Auto 1300 /uL (1100-4500); Mean Corpuscular HGB Conc 33.9 % (30-36); Mean Corpuscular Hemoglobin 28.2 PG (26-34); Monocytes Absolute Auto 400 /uL (0-900); Monocytes Percent Auto 7.8 % (3-14); Neutrophils Absolute Auto 3500 /uL (1500-7000); Neutrophils Percent Auto 67.1 % (50-75); Platelet Count 233 X10^3/uL (150-400); Red Blood Cell Count 4.39 X10^6/uL (4.0-5.2); Red Cell Distribution Width 12.4 % (11.6-14.8); White Blood Cell Count 5.2 X10^3/uL (4.5-11.0)
[2021-04-19 11:13] LABS: Alanine Aminotransferase 25 IU/L (<35); Albumin 4.4 g/dL (3.5-5.0); Albumin Globulin Ratio 1.5 (1.0-2.8); Alkaline Phosphatase 54 U/L (38-126); Aspartate Aminotransferase 28 IU/L (14-36); Bilirubin Total 0.5 mg/dL (0.2-1.3); Blood Urea Nitrogen 15 mg/dL (7-17); Calcium 9.3 mg/dL (8.4-10.2); Carbon Dioxide 28 mmol/L (22-32); Chloride 103 mmol/L (98-107); Estimated Glomerular Filt Rate > 60.0 mL/min (>60); Globulin 2.9 g/dL (1.7-4.1); Glucose 77 mg/dL (70-100); HEMOLYSIS < 15 (0-50); Lipase 114 U/L (23-300); Potassium 4.2 mmol/L (3.4-5.1); Sodium 139 mmol/L (137-145); Total Protein 7.3 g/dL (6.3-8.2)
--- NOTE | 2021-04-19 11:18 | ED_ITS ---
HPI - General Adult General Chief complaint: Abdominal Pain Stated complaint: Upper right quadrant pain x5 days Time Seen by Provider: 04/19/21 10:30 Source: patient Mode of arrival: Family Vehicle Limitations: no limitations History of Present Illness HPI narrative: Patient is a 26-year-old female. Has had issues with nausea in the past. Is on medications for this to include anti reflux medicines. She has had her gallbladder evaluated in the past. Her main complaint is nausea although she occasionally has right upper quadrant abdominal pain. She does have irregular stools. Has had like colored stools in the past. Had a bowel movement yesterday. She states she only goes every couple days. Has altern ating constipation and diarrhea. No blood in her stool. No urinary symptoms. No vaginal bleeding. No vomiting. No fevers. No prior abdominal surgeries. She had an appointment with her primary doctor today who sent her to the emergency department because the patient states ?they could not do anything else for me ?and they thought that the emergency department ?head more resources ? Related Data Previous Rx's Medication Instructions Recorded cyclobenzaprine 10 mg tablet 10 mg PO TID PRN #14 tab 03/22/21 hydrocodone 5 mg-acetaminophen 325 1 tab PO Q4-6H PRN #7 tab 03/22/21 mg tablet lidocaine 5 % topical patch 1 patch TOPICAL DAILY PRN #15 ea 03/22/21 Allergies Allergy/AdvReac Type Severity Reaction Status Date / Time No Known Drug Allergies Allergy Verified 04/19/21 10:28 Review of Systems Constitutional Constitutional: Denies fever(s) and Denies headache(s) ENT Ears, Nose, Mouth, and Throat: Denies headache(s) Cardiovascular Cardiovascular: Reports system reviewed and no additional complaints, except as documented Respiratory Respiratory: Reports system reviewed and no additional complaints, except as documented Gastrointestinal Gastrointestinal: Reports as per HPI and Reports system reviewed and no additional complaints, except as documented Genitourinary Genitourinary: Reports system reviewed and no additional complaints, except as d ocumented and Reports as per HPI Musculoskeletal Musculoskeletal: Reports system reviewed and no additional complaints, except as documented Integumentary/Breasts Skin/Breast: Reports system reviewed and no additional complaints, except as documented Neurologic Neurologic: Denies headache(s) Patient History Medical History (Updated 04/19/21 @ 11:34 by Oliver Malcolm DO) Migraine Social History Smoking Status: Current some day smoker Smoking Status: Current some day smoker tobacco type: vaping alcohol intake frequency: holidays/special occasions only Substance Use Type: does not use Exam Initial Vital Signs Initial Vital Signs: Vital Signs Temperature 98.2 F 04/19/21 10:28 Pulse Rate 92 H 04/19/21 10:28 Respiratory Rate 18 04/19/21 10:28 Blood Pressure 118/74 04/19/21 10:28 Pulse Oximetry 99 04/19/21 10:28 Const General: cooperative and healthy appearing [facility] Head: normal to inspection Resp Effort & Inspection: normal respiratory effort Auscultation: clear to auscultation bilaterally Cardio Rate: regular rate Rhythm: regular rhythm GI Palpation: soft, No firm and No tender Back/Spine/Pelvis Back: No CVA tenderness Skin General: no rashes or lesions noted Neuro General: patient alert, patient awake, patient oriented x3 and moves all extremities Extrem General: normal to inspection and capillary refill normal Psych Appearance: grossly normal and well kempt Course Orders Ordered: ED Orders 04/19/21 10:32 US abdomen limited Stat 04/19/21 10:55 Complete Blood Count AUTO DIFF Stat Comprehensive Metabolic Panel Stat Lipase Stat Vital Signs Vital signs: Vital Signs - 8 hr 04/19/21 10:28 04/19/21 11:21 Temperature 98.2 F Pulse Rate 92 H 85 Respiratory Rate 18 12 Blood Pressure 118/74 102/69 Pulse Oximetry 99 99 Medical Decision Making Medical Records Medical records reviewed: Yes I reviewed the patient's medical records. Lab Data Lab results reviewed: Yes I reviewed the patient's lab results. Result diagrams: 04/19/21 10:55 04/19/21 10:55 Labs: Lab Results 04/19/21 04/19/21 Range/Units 10:55 10:55 WBC 5.2 (4.5-11.0) X10^3/uL RBC 4.39 (4.0-5.2) X10^6/uL Hgb 12.4 (12.0-16.0) g/dL Hct 36.5 (36-46) % MCV 83.0 (80-100) fL MCH 28.2 (26-34) PG MCHC 33.9 (30-36) % RDW 12.4 (11.6-14.8) % Plt Count 233 (150-400) X10^3/uL Neut % (Auto) 67.1 (50-75) % Lymph % (Auto) 25.0 (25-40) % [place] % (Auto) 7.8 (3-14) % Eos % (Auto) 0.0 L (2-4) % Baso % (Auto) 0.1 (0-2) % Neut # (Auto) 3500 (9572-7551) /uL Lymph # (Auto) 1300 (3565-5039) /uL Fallon # (Auto) 400 (0-900) /uL Eos # (Auto) 0 (0-450) /uL Baso # (Auto) 0 (0-100) /uL Sodium 139 (137-145) mmol/L Potassium 4.2 (3.4-5.1) mmol/L Chloride 103 (98-107) mmol/L Carbon Dioxide 28 (22-32) mmol/L BUN 15 (7-17) mg/dL Creatinine 0.79 (0.52-1.04) mg/dL Estimated GFR > 60.0 (>60) mL/min BUN/Creatinine Ratio 19.0 (6-22) Glucose 77 (70-100) mg/dL Calcium 9.3 (8.4-10.2) mg/dL Total Bilirubin 0.5 (0.2-1.3) mg/dL AST 28 (14-36) IU/L ALT 25 (<35) IU/L Alkaline Phosphatase 54 (38-126) U/L Total Protein 7.3 (6.3-8.2) g/dL Albumin 4.4 (3.5-5.0) g/dL Globulin 2.9 (1.7-4.1) g/dL Albumin/Globulin Ratio 1.5 (1.0-2.8) Lipase 114 (23-300) U/L Point of Care Testing Test Results Negative Urine Dip Bedside Urine Glucose Negative Bedside Urine Bilirubin - Negative Bedside Urine Ketone - Negative Urine Specific [place] 1.015 Bedside Urine Occult Blood - Negative Bedside Urine pH 8.0 Bedside Urine Urobilinogen - Negative Bedside Urine Nitrite - Negative Bedside Urine Leukocytes - Negative Esterase Point of care testing: Point of Care Testing Test Results Negative Urine Dip Bedside Urine Glucose Negative Bedside Urine Bilirubin - Negative Bedside Urine Ketone - Negative Urine Specific [place] 1.015 Bedside Urine Occult Blood - Negative Bedside Urine pH 8.0 Bedside Urine Urobilinogen - Negative Bedside Urine Nitrite - Negative Bedside Urine Leukocytes - Negative Esterase Imaging Data US - abdomen: Radiologist's Impression: [address] [address] Ultrasound Report Signed Patient: Pau Aguilar MR#: [id number] : 1995 Acct:[id number] Age/Sex: 26 / F Date of Service: 04/19/21 Loc: ED Accession Number: [id number] ?? Procedure: US abdomen limited Ordering Provider: Oliver Malcolm D.O. PROCEDURE:? US ABDOMEN LIMITED ? INDICATIONS:? RIGHT UPPER QUADRANT PAIN ? TECHNIQUE:? Real-time scanning was performed of the abdominal and retroperitoneal organs, with image documentation.? ? COMPARISON:? None. ? FINDINGS:? ? Liver:? Liver is normal in size and homogeneous in echotexture.? ? Gallbladder:? There is no gallstone.? No gallbladder wall thickening or pericholecystic fluid.? No sonographic Jung sign. ? Biliary ducts:? Intrahepatic bile ducts are non-dilated.? Extrahepatic bile duct caliber measures 6.1 mm.? Normal is 6-7 mm or less in diameter, or 10 mm or less post-cholecystectomy.? ? Pancreas:? Visualized portions of the pancreas are sonographically normal.? ? Miscellaneous:? No free abdominal fluid.? ? ? IMPRESSION:? Unremarkable ultrasound examination of right upper quadrant abdomen. ? ? Dictated by: Jonathon Brennan M.D. on 04/19/2021 at 11:08 ? ? Approved by: Jonathon Brennan M.D. on 04/19/2021 at 11:09 [facility] Narrative Medical decision making narrative: Patient has had nausea for some time now. Occasional right upper quadrant pain. Her right upper quadrant ultrasound and labs here in the emergency department her all were unremarkable. Not . Urinalysis unremarkable. I have low suspicion for an acute surgical issue in her abdomen. I feel that we can hold on a CT scan for now. I feel that she does need a referral to see Gastroenterology issue will most likely need an upper endoscopy and also a colonoscopy. I did discuss this with her. This is referral that her primary doctor come place. She was given return precautions and follow-up instructions. She expressed understanding and agreement Discharge Plan Departure Patient Disposition: Home Clinical Impression: Nausea Instructions: DI for Nausea -- Adult Activity Restrictions/Additional Instructions: Continues take all of your medications as directed. I do recommend that you talk with your medical department about the indications for referral to see Gastroenterology. You most likely need a colonoscopy and a upper endoscopy for further evaluation of your symptoms. Return to the emergency department for any new symptoms. Prescriptions: No Action cyclobenzaprine 10 mg tablet 10 mg PO TID PRN (Reason: muscle spasm) Qty: 14 RF: 0 hydrocodone-acetaminophen 5-325 mg tablet 1 tab PO Q4-6H PRN (Reason: pain) Qty: 7 RF: 0 lidocaine 5 % adhesive patch,medicated 1 patch topical DAILY PRN (Reason: pain) Qty: 15 RF: 0 Referrals: Timur Benítez PA-C [Primary Care Provider] -
[2021-04-19 11:21] VITALS: BP 102/69; PULSE 85; RESP 12; O2SAT 99
== END 2021-04-19 11:41 | disposition home or self-care (01) ==
PROVIDERS: Emergency Provider Emergency Medicine; PCP Physician Assistant
DX: R10.11 Right upper quadrant pain (principal); R11.0 Nausea
CPT/HCPCS: 36415; 76705; 80053; 81003; 81025; 83690; 85025; 99284